=== PATIENT | male | born 1985 | race Caucasian/White ===

== ENCOUNTER 2020-06-12 16:00 | Outpatient (REF) | payer SELFPAY ==
[2020-06-14 04:05] LABS: SARS COV2 IgG Negative (Negative)
== END 2020-06-12 16:01 | disposition home or self-care (01) ==
LOC: HO.LNC 16:00
PROVIDERS: Visit Provider Pathology Anatomic Pathology & Clinical Pathology
DX: Z20.828 Contact with and (suspected) exposure to other viral communicable diseases (principal)
CPT/HCPCS: 86769

== ENCOUNTER 2020-06-12 16:20 | Outpatient (REF) | payer OTHER, SELFPAY | END 2020-06-12 16:21 | disposition home or self-care (01) | LOC: HO.BBR 16:20 | PROVIDERS: Visit Provider Internal Medicine Hematology & Oncology | DX: Z13.89 Encounter for screening for other disorder (principal) ==

== ENCOUNTER 2020-09-20 13:02 | Outpatient (REF) | payer OTHER, SELFPAY | END 2020-09-20 13:03 | disposition home or self-care (01) | LOC: HO.BBR 13:02 | PROVIDERS: Visit Provider Internal Medicine Hematology & Oncology | DX: Z13.89 Encounter for screening for other disorder (principal) ==

== ENCOUNTER 2021-01-08 14:58 | Outpatient (REF) | payer OTHER, SELFPAY | END 2021-01-08 14:59 | disposition home or self-care (01) | LOC: HO.BBR 14:58 | PROVIDERS: Visit Provider Internal Medicine Hematology & Oncology | DX: Z13.89 Encounter for screening for other disorder (principal) ==

== ENCOUNTER 2021-04-23 15:30 | Outpatient (REF) | payer OTHER, SELFPAY | END 2021-04-23 15:31 | disposition home or self-care (01) | LOC: HO.BBR 15:30 | PROVIDERS: PCP Internal Medicine; Visit Provider Internal Medicine Hematology & Oncology | DX: Z13.89 Encounter for screening for other disorder (principal) ==

== ENCOUNTER 2021-06-20 14:05 | Outpatient (REF) | payer OTHER, SELFPAY | END 2021-06-20 14:06 | disposition home or self-care (01) | LOC: HO.BBR 14:05 | PROVIDERS: Visit Provider Internal Medicine Hematology & Oncology | DX: Z13.89 Encounter for screening for other disorder (principal) ==

== ENCOUNTER 2021-08-15 14:03 | Outpatient (REF) | payer OTHER, SELFPAY | END 2021-08-15 14:04 | disposition home or self-care (01) | LOC: HO.BBR 14:03 | PROVIDERS: Visit Provider Internal Medicine Hematology & Oncology | DX: Z13.89 Encounter for screening for other disorder (principal) ==

== ENCOUNTER 2022-01-08 15:01 | Outpatient (REF) | payer OTHER, SELFPAY | END 2022-01-08 15:02 | disposition home or self-care (01) | LOC: HO.BBR 15:01 | PROVIDERS: Visit Provider Internal Medicine Hematology & Oncology | DX: Z13.89 Encounter for screening for other disorder (principal) ==

== ENCOUNTER 2022-03-13 15:17 | Outpatient (REF) | payer OTHER, SELFPAY | END 2022-03-13 15:18 | disposition home or self-care (01) | LOC: HO.BBR 15:17 | PROVIDERS: Visit Provider Internal Medicine Hematology & Oncology | DX: Z13.89 Encounter for screening for other disorder (principal) ==

== ENCOUNTER 2022-06-27 10:55 | Outpatient (REF) | payer OTHER, SELFPAY | END 2022-06-27 10:56 | disposition home or self-care (01) | LOC: HO.BBR 10:55 | PROVIDERS: Visit Provider Internal Medicine Hematology & Oncology | DX: Z13.89 Encounter for screening for other disorder (principal) ==

== ENCOUNTER 2022-09-02 15:09 | Outpatient (REF) | payer OTHER, SELFPAY | END 2022-09-02 15:10 | disposition home or self-care (01) | LOC: HO.BBR 15:09 | PROVIDERS: Visit Provider Internal Medicine Hematology & Oncology | DX: Z13.89 Encounter for screening for other disorder (principal) ==

== ENCOUNTER 2022-12-11 13:57 | Outpatient (REF) | payer OTHER, SELFPAY | END 2022-12-11 13:58 | disposition home or self-care (01) | LOC: HO.BBR 13:57 | PROVIDERS: Visit Provider Internal Medicine Hematology & Oncology | DX: Z13.89 Encounter for screening for other disorder (principal) ==

== ENCOUNTER 2023-02-05 14:48 | Outpatient (REF) | payer OTHER, SELFPAY | END 2023-02-05 14:49 | disposition home or self-care (01) | LOC: HO.BBR 14:48 | PROVIDERS: Visit Provider Internal Medicine Hematology & Oncology | DX: Z13.89 Encounter for screening for other disorder (principal) ==

== ENCOUNTER 2023-04-02 15:29 | Outpatient (REF) | payer OTHER, SELFPAY | END 2023-04-02 15:30 | disposition home or self-care (01) | LOC: HO.BBR 15:29 | PROVIDERS: PCP Family Medicine; Visit Provider Internal Medicine Hematology & Oncology | DX: Z13.89 Encounter for screening for other disorder (principal) ==

== ENCOUNTER 2023-05-28 15:18 | Outpatient (REF) | payer OTHER, SELFPAY | END 2023-05-28 15:19 | disposition home or self-care (01) | LOC: HO.BBR 15:18 | PROVIDERS: PCP Family Medicine; Visit Provider Internal Medicine Hematology & Oncology | DX: Z13.89 Encounter for screening for other disorder (principal) ==

== ENCOUNTER 2023-07-23 15:26 | Outpatient (REF) | payer OTHER, SELFPAY | END 2023-07-23 15:27 | disposition home or self-care (01) | LOC: HO.BBR 15:26 | PROVIDERS: PCP Family Medicine; Visit Provider Internal Medicine Hematology & Oncology | DX: Z13.89 Encounter for screening for other disorder (principal) ==

== ENCOUNTER 2023-09-17 15:10 | Outpatient (REF) | payer OTHER, SELFPAY | END 2023-09-17 15:11 | disposition home or self-care (01) | LOC: HO.BBR 15:10 | PROVIDERS: PCP Family Medicine; Visit Provider Internal Medicine Hematology & Oncology | DX: Z13.89 Encounter for screening for other disorder (principal) ==

== ENCOUNTER 2023-12-24 14:25 | Outpatient (REF) | payer OTHER, SELFPAY | END 2023-12-24 14:26 | disposition home or self-care (01) | LOC: HO.BBR 14:25 | PROVIDERS: PCP Family Medicine; Visit Provider Internal Medicine Hematology & Oncology | DX: Z13.89 Encounter for screening for other disorder (principal) ==

== ENCOUNTER 2024-02-18 15:03 | Outpatient (REF) | payer OTHER, SELFPAY | END 2024-02-18 15:04 | disposition home or self-care (01) | LOC: HO.BBR 15:03 | PROVIDERS: PCP Family Medicine; Visit Provider Internal Medicine Hematology & Oncology | DX: Z13.89 Encounter for screening for other disorder (principal) ==

== ENCOUNTER 2024-04-14 15:29 | Outpatient (REF) | payer OTHER, SELFPAY | END 2024-04-14 15:30 | disposition home or self-care (01) | LOC: HO.BBR 15:29 | PROVIDERS: PCP Family Medicine; Visit Provider Internal Medicine Hematology & Oncology | DX: Z13.89 Encounter for screening for other disorder (principal) ==

== ENCOUNTER 2024-06-14 14:50 | Outpatient (REF) | payer OTHER, SELFPAY | END 2024-06-14 14:51 | disposition home or self-care (01) | LOC: HO.BBR 14:50 | PROVIDERS: Visit Provider Internal Medicine Hematology & Oncology | DX: Z13.89 Encounter for screening for other disorder (principal) ==

== ENCOUNTER 2024-07-08 14:47 | Outpatient (REF) | payer OTHER, SELFPAY | END 2024-07-08 14:48 | disposition home or self-care (01) | LOC: HO.BBR 14:47 | PROVIDERS: PCP Family Medicine; Visit Provider Internal Medicine Hematology & Oncology | DX: Z13.89 Encounter for screening for other disorder (principal) ==

== ENCOUNTER 2024-08-10 08:59 | Outpatient (REF) | payer OTHER, SELFPAY | END 2024-08-10 09:00 | disposition home or self-care (01) | LOC: HO.BBR 08:59 | PROVIDERS: PCP Family Medicine; Visit Provider Internal Medicine Hematology & Oncology | DX: Z13.89 Encounter for screening for other disorder (principal) ==

== ENCOUNTER 2024-09-13 15:29 | Outpatient (REF) | payer OTHER, SELFPAY ==
--- OUTSIDE RECORDS SUMMARY | 2024-09-13 19:33 | XMS_ITS | Clinical Summary ---
Author Organization [facility] Address [address] [place] [address] Care Team Providers Care Powder Mill Operator Name Role Phone Tamera Moore MD Primary Care Provider [phone] Allergies No known active allergies Medications No known medications Active Problems Problem Noted Date Diagnosed Date Hereditary hemochromatosis 12/01/2019 Social History Tobacco Use Types Packs/Day Years Used Date Smoking Tobacco: Never Assessed Sex and Gender Information Value Date Recorded Sex Assigned at Not on file Gender Identity Not on file Sexual Orientation Not on file Job Start Date Occupation Industry Not on file Not on file Not on file Last Filed Vital Signs Vital Sign Reading Time Taken Comments Blood Pressure 133/85 10/20/2023 3:01 PM EDT Pulse 100 10/20/2023 3:01 PM EDT Temperature 36.7 ??C (98 ??F) 10/20/2023 3:01 PM EDT Respiratory Rate - - Oxygen Saturation 98% 10/20/2023 3:01 PM EDT Inhaled Oxygen Concentration - - Weight 65.3 kg (144 lb) 10/20/2023 3:01 PM EDT Height 170.2 cm (5' 7 ) 10/20/2023 3:01 PM EDT Body Mass Index 22.55 10/20/2023 3:01 PM EDT Plan of Treatment Health Maintenance Due Date Last Done Comments Hepatitis C Screening 1984 COVID-19 Vaccine (#1) 05/02/1985 Depression Screening 1996 DTap / Tdap / Td (6 - Tdap) 12/27/199812/11, 03/05/1990, 02/24/1987, Additional history exists Preventative Health Evaluation 2002 Influenza Vaccine (#1) 2024 Hepatitis B Vaccines Completed 08/21/2000, 08/21/2000, 01/28/1999, Additional history exists Pneumococcal Vaccine Aged Out No long er eligible based on patient's age to complete this topic RSV Ped < 20 months Aged Out No longe r eligible based on patient's age to complete this topic Care Teams Powder Mill Operator Relationship Specialty Start Date End Date Tamera Moore MD [address] [address] PCP - General Batch Room Technician 10/10/21
--- OUTSIDE RECORDS SUMMARY | 2024-09-13 19:34 | XMS_ITS | Clinical Summary ---
Author Organization [facility] Address [address] [place] [address] Phone Care Team Providers Care Gasket Maker Name Role Phone Tamera Moore MD Primary Care Provider [phone] Allergies No known active allergies Medications No known medications Active Problems Problem Noted Date Diagnosed Date Hereditary hemochromatosis 12/01/2019 Encounters Date Type Department Care Team Description 07/01/2024 Telephone [facility] Hematology Oncology [address] [place] [phone] Geovany Powers MD 06/16/2024 2:30 PM EST Office Visit [facility] Hematology Oncology [address] [place] [phone] Geovany Powers MD Hereditary hemochromatosis (CMS/HCC) (Primary Dx) from Last 3 Months Social History Tobacco Use Types Packs/Day Years Used Date Smoking Tobacco: Never Smokeless Tobacco: Never Tobacco Cessation:Counseling Given: Not Answered Alcohol Use Standard Drinks/Week Comments Yes 0 (1 standard drink = 0.6 oz pur e alcohol) Social Sex and Gender Information Value Date Recorded Sex Assigned at Not on file Legal Sex Male 7:50 AM EST Gender Identity Not on file Sexual Orientation Not on file Obstetrics History Last Filed Vital Signs Vital Sign Reading Time Taken Comments Blood Pressure 110/72 06/16/2024 2:32 PM EST Pulse 83 06/16/2024 2:32 PM EST Temperature 36.8 ??C (98.3 ??F) 06/16/2024 2:32 PM ES T Respiratory Rate - - Oxygen Saturation 100% 06/16/2024 2:32 PM EST Inhaled Oxygen Concentration - - Weight 62.6 kg (138 lb) 06/16/2024 2:32 PM EST Height 170.2 cm (5' 7 ) 10/20/2023 3:01 PM EDT Body Mass Index 21.61 10/20/2023 3:01 PM EDT Plan of Treatment Upcoming Encounters Date Type Department Care Team (Late st Contact Info) Description 10/18/2024 3:45 PM EDT Office Visit [facility] Hematology Oncology [address] [place] [address] Geovany Powers MD [address] [place] [address] Health Maintenance Due Date Last Done Comments DTaP,Tdap,and Td Vaccines (7 - Td or Tdap) 12/26/2008 12/26/1998, 03/05/1990, 02/24/1987, Additional history exists Cholesterol Screening (Lipid Panel) 06/20/2022 Depression Screening 06/20/2022 HIV Screening 06/20/2022 Hepatitis C Screening 06/20/2022 Social Influencers of Health Screening 06/20/2022 COVID-19 Vaccine ( season) 2024 Influenza Vaccine (#1) 2024 HIB Vaccines Completed 02/24/1987 IPV Vaccines Completed 03/05/1990, 02/10, 05/27/1986, Additional history exists MMR Vaccines Completed 02/16/1995, 01/24/1986 Hepatitis B Vaccines Completed 08/21/2000, 01/28/1999, 12/26/1998 HPV Vaccines Aged Out No longer eligi ble based on patient's age to complete this topic Hepatitis A Vaccines Aged Out No long er eligible based on patient's age to complete this topic Meningococcal ACWY Vaccine Aged Out N o longer eligible based on patient's age to complete this topic Meningococcal B Vacine Aged Out No lo nger eligible based on patient's age to complete this topic Pneumococcal Vaccine: Pediatrics (0 to 5 Years) and At-Risk Patients (6 to 64 Years) Aged Out No longer eligible based on patient's age to complete this topic RSV Immunization Patients Under 20 months Aged Out No longer eligible based on patient's age to complete this topic Varicella Vaccines Aged Out No longer eligible based on patient's age to complete this topic Insurance [facility] Care Teams Gasket Maker Relationship Specialty Start Date End Date Tamera Moore MD [address] [place] [address] PCP - General Document Management Technician 10/10/21
== END 2024-09-13 15:30 | disposition home or self-care (01) ==
LOC: HO.BBR 15:29
PROVIDERS: PCP Family Medicine; Visit Provider Internal Medicine Hematology & Oncology
DX: Z13.89 Encounter for screening for other disorder (principal)

== ENCOUNTER 2024-11-24 15:26 | Outpatient (REF) | payer OTHER, SELFPAY ==
--- OUTSIDE RECORDS SUMMARY | 2024-11-24 15:54 | XMS_ITS | Clinical Summary ---
Author Organization [facility] Address [address] [place] [address] Phone Care Team Providers Care Ship Joiner Name Role Phone Tamera Moore MD Primary Care Provider [phone] Allergies No known active allergies Medications triamcinolone (KENALOG) 0.025 % cream apply to affected area twice a day for 14 days 10/11/2024 Active Active Problems Problem Noted Date Diagnosed Date Hereditary hemochromatosis ([facility]/HCC V24) 020 Encounters Date Type Department Care Team Description 10/18/2024 3:45 PM EDT Office Visit [facility] Hematology Oncology [address] [place] [address] Geovany Powers MD Hereditary hemochromatosis ([facility] V24) (Primary Dx) from Last 3 Months Surgical History Surgery Date Site/Laterality Comments MOLE REMOVAL PROCEDURE: HISTORICAL MOLE (REMOVAL OF) Medical History Medical History Date Comments Other acne DX:Other acne Nevus, non-neoplastic DX:Nevus, non-neoplastic Family History Medical History Relation Name Comments Asthma Brother 1 Relation Name Status Comments Brother 1 Brother 2 Alive 84 FABIO PHER (PT'S TWIN) Brother 3 Alive 1979 HALEY Father Alive 1960 Mother Alive 1960 Sister 1 NGUYEN FROM HOUS E FIRE Sister 2 NGUYEN FROM HOUS E FIRE Social History Tobacco Use Types Packs/Day Years [...] Sign Reading Time Taken Comments Blood Pressure 124/74 10/18/2024 3:51 PM EDT Pulse 92 10/18/2024 3:51 PM EDT Temperature 37.1 ??C (98.8 ??F) 10/18/2024 3:51 PM ED T Respiratory Rate - - Oxygen Saturation 98% 10/18/2024 3:51 PM EDT Inhaled Oxygen Concentration - - Weight 64.4 kg (142 lb) 10/18/2024 3:51 PM EDT Height 170.2 cm (5' 7 ) 10/18/2024 3:51 PM EDT Body Mass Index 22.24 10/18/2024 3:51 PM EDT Plan of Treatment Upcoming Encounters Date Type Department Care Team (Late st Contact Info) Description 04/12/2025 3:45 PM EDT Office Visit [facility] Hematology Oncology [address] [place] [address] Geovany Powers MD [address] [place] [address] Health Maintenance Due Date Last Done Comments COVID-19 Vaccine (#1) 1989 Pneumococcal Vaccine: Pediatrics (0 to 5 Years) and At-Risk Patients (6 to 64 Years) (1 of 2 - PCV) 11/01/2003 DTaP,Tdap,and Td Vaccines (7 - Td or Tdap) 12/26/2008 12/26/1998, 03/05/1990, 02/24/1987, Additional history exists Cholesterol Screening (Lipid Panel) 06/20/2022 Depression Screening 06/20/2022 HIV Screening 06/20/2022 Hepatitis C Screening 06/20/2022 Social Influencers of Health Screening 06/20/2022 Influenza Vaccine (Season Ended) 2025 HIB Vaccines Completed 02/24/1987 IPV Vaccines Completed 03/05/1990, 02/10, 05/27/1986, Additional history exists MMR Vaccines Completed 02/16/1995, 01/24/1986 Hepatitis B Vaccines Completed 08/21/2000, 01/28/1999, 12/26/1998 Meningococcal ACWY Vaccine Aged Out 12/18/2008 N o longer eligible based on patient's age to complete this topic HPV Vaccines Aged Out No longer eligi ble based on patient's age to complete this topic Hepatitis A Vaccines Aged Out No long er eligible based on patient's age to complete this topic Meningococcal B Vaccine Aged Out No l onger eligible based on patient's age to complete this topic RSV Immunization Patients Under 20 months Aged Out No longer eligible based on patient's age to complete this topic Varicella Vaccines Aged Out No longer eligible based on patient's age to complete this topic Insurance [facility] [address] [place] [address] Care Teams Ship Joiner Relationship Specialty Start Date End Date Tamera Moore MD [address] [place] [address] PCP - General Pattern Vault Clerk 10/10/21
--- OUTSIDE RECORDS SUMMARY | 2024-11-24 15:54 | XMS_ITS | Clinical Summary ---
Author Organization [facility] Address [address] [place] [address] Care Team Providers Care Surveillance Supervisor Name Role Phone Tamera Moore MD Primary Care Provider [phone] Allergies No known active allergies Medications No [...] age to complete this topic Care Teams Surveillance Supervisor Relationship Specialty Start Date End Date Tamera Moore MD [address] [address] PCP - General Arbor Press Operator 10/10/21
== END 2024-11-24 15:27 | disposition home or self-care (01) ==
LOC: HO.BBR 15:26
PROVIDERS: PCP Family Medicine; Visit Provider Internal Medicine Hematology & Oncology
DX: Z13.89 Encounter for screening for other disorder (principal)

== ENCOUNTER 2025-01-24 15:12 | Outpatient (REF) | payer OTHER, SELFPAY ==
--- OUTSIDE RECORDS SUMMARY | 2025-01-24 16:23 | XMS_ITS | Clinical Summary ---
Author Organization [facility] Address [address] [place] [address] Phone Care Team Providers Care Roving Department Supervisor Name Role Phone Tamera Moore MD Primary Care Provider [phone] Allergies No known active allergies Medications triamcinolone (KENALOG) 0.025 % cream apply to affected area twice a day for 14 days 10/11/2024 Active Active Problems Problem Noted Date Diagnosed Date Hereditary hemochromatosis (CMS/HCC V24) 020 Surgical History Surgery Date Site/Laterality Comments MOLE [...] 92 10/18/2024 3:51 PM EDT Temperature 37.1 C (98.8 F) 10/18/2024 3:51 PM EDT Respiratory Rate - - Oxygen [...] Description 04/12/2025 3:45 PM EDT Office Visit [facility] Hematology Oncology [address] [place] [address] Geovany Powers MD [address] [place] [address] Health Maintenance Due Date Last Done Comments COVID-19 Vaccine (#1) 1989 Pneumococcal Vaccine: Pediatrics (0 to 5 Years) and At-Risk Patients (6 to 49 Years) (1 of 2 - PCV) 11/01/2003 DTaP,Tdap,and Td Vaccines (7 - Td or Tdap) 12/26/2008 12/26/1998, 03/05/1990, 02/24/1987, Additional history exists Cholesterol Screening (Lipid Panel) 06/20/2022 Depression Screening 06/20/2022 HIV Screening 06/20/2022 Hepatitis C Screening 06/20/2022 Social Influencers of Health Screening 06/20/2022 Influenza Vaccine (#1) 2025 HIB Vaccines Completed 02/24/1987 IPV Vaccines [...] patient's age to complete this topic Insurance [facility] Care Teams Roving Department Supervisor Relationship Specialty Start Date End Date Tamera Moore MD [address] [place] [address] PCP - General Dogger 10/10/21
--- OUTSIDE RECORDS SUMMARY | 2025-01-24 16:23 | XMS_ITS | Clinical Summary ---
Author Organization [facility] Address [address] [place] [address] Care Team Providers Care Residential Treatment Counselor Name Role Phone Tamera Moore MD Primary Care Provider [phone] Allergies No known active allergies Medications No [...] 100 10/20/2023 3:01 PM EDT Temperature 36.7 C (98 F) 10/20/2023 3:01 PM EDT Respiratory Rate - [...] Preventative Health Evaluation 2002 Influenza Vaccine (#1) 2025 Hepatitis B Vaccines Completed 08/21/2000, 08/21/2000, 01/28/1999, Additional history exists Pneumococcal Vaccine Aged Out No long er eligible based on patient's age to complete this topic RSV Ped < 20 months Aged Out No longe r eligible based on patient's age to complete this topic Care Teams Residential Treatment Counselor Relationship Specialty Start Date End Date Tamera Moore MD [address] [facility] [address] [place] [address] PCP - General Research Anthropologist 10/10/21
== END 2025-01-24 15:13 | disposition home or self-care (01) ==
LOC: HO.BBR 15:12
PROVIDERS: PCP Family Medicine; Visit Provider Internal Medicine Hematology & Oncology
DX: Z13.89 Encounter for screening for other disorder (principal)

== ENCOUNTER 2025-05-23 09:53 | Outpatient (REF) | payer OTHER, SELFPAY ==
--- OUTSIDE RECORDS SUMMARY | 2025-05-23 11:14 | XMS_ITS | Clinical Summary ---
Author Organization [facility] Address [address] [place] [address] Phone Care Team Providers Care Contract Associate Name Role Phone Tamera Moore MD Primary Care Provider [phone] Allergies No known active allergies Medications triamcinolone [...] 1979 HALEY Father Alive 1960 Mother Alive 196 Sister 1 NGUYEN FROM HOUS E FIRE [...] 10/18/2024 3:51 PM EDT Plan of Treatment Health Maintenance Due Date Last Done Comments DTaP,Tdap,and Td Vaccines (7 - Td or Tdap) 12/26/2008 12/26/1998, 03/05/1990, 02/24/1987, Additional history exists HPV Vaccines (1 - 3-dose SCDM series) 11/01/2011 Cholesterol Screening (Lipid Panel) 06/20/2022 HIV Screening 06/20/2022 Hepatitis C Screening 06/20/2022 Social Influencers of Health Screening 06/20/2022 Depression Screening 07/13/2024 COVID-19 Vaccine ( season) 2025 Influenza Vaccine (#1) 2025 RSV Immunization Adult Patients (1 - 1-dose 75+ series) 11/01/2059 HIB Vaccines Completed 02/24/1987 IPV Vaccines Completed [...] and At-Risk Patients (6 to 49 Years) Aged Out No longer eligible based on patient's age to complete this topic RSV Immunization Patients Under 20 months Aged Out No longer eligible based on patient's age to complete this topic Varicella Vaccines Aged Out No longer eligible based on patient's age to complete this topic [place] [address] [place] [address] [facility] Care Teams Contract Associate Relationship Specialty Start Date End Date Tamera Moore MD [address] [place] [address] PCP - General Water Filterer Helper 10/10/21
== END 2025-05-23 09:54 | disposition home or self-care (01) ==
LOC: HO.BBR 09:53
PROVIDERS: PCP Family Medicine; Visit Provider Internal Medicine Hematology & Oncology
DX: Z13.89 Encounter for screening for other disorder (principal)